=== PATIENT | female | born 1970 | race Caucasian/White ===

== ENCOUNTER 2021-05-05 14:27 | Emergency (ER) | payer OTHER ==
[~2021-05-05] VITALS: Ht 162.6 cm; Wt 83.9 kg
[~2021-05-05 14:27] MED LIST: CIMETIDINE400 MG PO; COZAAR25 MG; PRILOSEC20 MG PO; SYNTHROID137 MCG; SYNTHROID150 MCG; SYNTHROID175 MCG; SYNTHROID50 MCG
[2021-05-05] MEDS ORDERED: CHILDREN'S ASPI81 MG (14:56)
== END 2021-05-05 19:44 | disposition home or self-care (01) ==
LOC: ER 14:27
DX: N83.02 Follicular cyst of left ovary (principal); E03.9 Hypothyroidism, unspecified; I10 Essential (primary) hypertension